=== PATIENT | male | born 1980 | race Two or more races ===

== ENCOUNTER → 2017-01-11 | Outpatient (CLI) | payer BC ==
[~2017-01-11] MED LIST: AMOXICILLIN PO; CLARITIN10 MG PO; IBUPROFEN600 MG PO; IBUPROFEN800 MG PO
--- NOTE | ~2017-01-11 | CR58 ---
[facility] A Service of [facility] & [facility] RADIOLOGY TEXT RESULTS PATIENT: JESSY ROGER LOCATION: [facility] : [birth year] UNIT #: [id number] AGE: [address]: Vish Hobbs MD SEX: M ORDER DR: [id number] [facility] [address]. [place], [place] [address] [id number] O MR#: [id number] Acc #: [id number] NAME: JESSY ROGER : 1980 SEX: M STUDY DATE/TIME: 01/11/2017 16:49 UNIT: [facility] ROOM: STUDY DESCRIPTION: CR Cervical Spine 2 or 3 Views Attending Physician: Vish Hobbs M.D. Referring Physician: Vish Hobbs M.D. Ordering Physician: Vish Hobbs M.D. Primary Care Physician: Vish Hobbs M.D. MEDICAL IMAGING REPORT This report is preliminary unless electronic signature is present EXAM Cervical spine, 01/11/17 HISTORY 36-year-old male with neck pain for 4 days. COMPARISON None. FINDINGS Seven views of the cervical spine demonstrate no acute fracture or subluxation. Vertebral body heights and alignment are normally maintained. Prevertebral soft tissues normal. Atlantoaxial relationship normal. Cervicothoracic junction is grossly unremarkable. Disc spaces and facets are unremarkable. IMPRESSION Unremarkable cervical spine. Dictated by... Jason Tolentino M.D. THIS IS AN ELECTRONICALLY VERIFIED REPORT Jason Tolentino M.D. at 01/12/2017 9:10 AM MARLENA/danuta TD: 01/11/2017 21:42 JOB #: [id number] MEDICAL IMAGING REPORT Page 1 of 1 COPY
== END | disposition home or self-care (01) ==
LOC: CRAD 16:34
DX: M54.2 Cervicalgia (principal)
CPT/HCPCS: 72040

== ENCOUNTER → 2017-03-24 | Outpatient (CLI) | payer BC ==
[2017-03-24 07:08] LABS: EOSINOPHIL# 0.1 X10e3 (0-0.7); EOSINOPHIL% 2.1 % (0.0-7.0); HEMATOCRIT 44.7 % (38.0-50.0); HEMOGLOBIN 14.9 gm/dL (13.0-16.0); LYMPHOCYTE# 1.6 X10e3 (1.0-3.5); LYMPHOCYTE% 47.5 % (17.0-45.0); MEAN CELL VOLUME 86.2 FL (83-96); MEAN CORPUSCULAR HEMOGLOBIN 28.7 PG (28-34); MEAN CORPUSCULAR HGB CONC 33.4 g/dL (30-36); MEAN PLATELET VOLUME 7.7 FL (6.5-11.5); MONOCYTE# 0.4 X10e3 (0-1.0); MONOCYTE% 12.7 % (3.0-12.0); NEUTROPHIL# 1.3 X10e3 (1.5-7.1); NEUTROPHIL% 36.7 % (40-75); PLATELET COUNT 199 X10e3 (140-420); RED BLOOD COUNT 5.19 X10e (3.90-5.60); RED CELL DISTRIBUTION WIDTH 15.3 % (11.0-15.5); WHITE BLOOD COUNT 3.4 X10e3 (4.0-10.5)
[2017-03-24 07:10] LABS: DIFF IND NO
[2017-03-24 07:47] LABS: ALBUMIN SERUM 3.9 g/dL (3.5-5.0); BILIRUBIN,TOTAL 0.5 mg/dL (0.2-2.0); CALCIUM SERUM 9.1 mg/dL (8.4-10.2); CREATININE SERUM 1.5 mg/dL (0.6-1.4); GLOM FILT RATE Estimated 58.2 mL/min (>60); POTASSIUM 4.2 mmol/L (3.5-5.1); PROTEIN TOTAL SERUM 6.6 g/dL (6.0-8.3); URIC ACID 5.2 mg/dL (2.6-7.2)
== END | disposition home or self-care (01) ==
LOC: CLAB 06:45
PROVIDERS: Internal Medicine
DX: Z00.00 Encounter for general adult medical examination without abnormal findings (principal); I12.9 Hypertensive chronic kidney disease with stage 1 through stage 4 chronic kidney disease, or unspecified chronic kidney disease; N18.9 Chronic kidney disease, unspecified; M10.9 Gout, unspecified; E78.5 Hyperlipidemia, unspecified; E66.3 Overweight
CPT/HCPCS: 36415; 80053; 80061; 84550; 85025